=== PATIENT | female | born 2005 | race Caucasian/White ===

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

== ENCOUNTER 2023-08-16 08:21 | Outpatient (CLI) | payer OTHER | END 2023-08-16 08:22 | disposition home or self-care (01) | LOC: MRI 08:21 | PROVIDERS: ATTEND Orthopaedic Surgery | DX: M25.511 Pain in right shoulder (principal); S43.491A Other sprain of right shoulder joint, initial encounter ==

== ENCOUNTER 2023-08-21 00:08 | Emergency (ER) | payer OTHER ==
[2023-08-21] MEDS ORDERED: Morphine 4 MG/ML VIAL ONE (00:42)
[2023-08-21] MEDS ORDERED: Metoclopramide HCl 10 MG (2 mL) VIAL ONE (00:43)
[2023-08-21] MEDS ORDERED: diphenhydrAMINE 50 MG/ML VIAL ONE (00:43)
[2023-08-21 01:08] LABS: #Basophils 0.06 10x3/uL (0.0-0.2); %Basophils 0.7 % (0.0-1.0); %Eosinophils 1.5 % (0.0-10.0); %Lymphocytes 37.2 % (28.0-48.0); %Monocytes 8.5 % (0.0-4.0); Hematocrit 40.9 % (36.0-47.0); Mean Corpuscular HGB CONC 34.2 g/dL (32.0-36.0); Mean Corpuscular Hemoglobin 31.5 pg (25.0-35.0); Mean Corpuscular Volume 92.1 fL (78.0-98.0); Mean Platelet Volume 9.8 fL (7.4-10.4); Platelet Count 231 10x3/uL (130-400); RBC Distribution Width 12.3 % (11.5-14.5); Red Blood Cell (RBC) Count 4.44 mill/uL (4.00-5.20)
[2023-08-21 01:16] LABS: BHCG - Serum Negative (NEGATIVE); Pregs Control Background? CLEAR/WHITE (CLR/WHITE); Pregs Control Bar Appear? YES (CONTROL BAR)
[2023-08-21 01:26] LABS: ALT (SGPT) 13 U/L (8-55); AST (SGOT) 15 U/L (5-34); Albumin 3.8 g/dL (3.5-5.0); Alkaline Phosphatase 53 U/L (40-100); Anion Gap 13 mmol/L (10-20); BUN (Urea Nitrogen) 10 mg/dL (7.0-18.7); Bilirubin, Total 0.4 mg/dL (0.2-1.2); Calc. Creatinine Clearance 0 mL/min (70-130); Calcium 9.3 mg/dL (7.8-10.44); Carbon Dioxide 24 mmol/L (22-29); Chloride 106 mmol/L (98-107); Estimated GFR 107; Globulin 3.4 g/dL (2.4-3.5); Glucose 96 mg/dL (70-105); Magnesium 2.1 mg/dL (1.7-2.2); Potassium 3.7 mmol/L (3.5-5.1); Protein, Total 7.2 g/dL (6.0-8.3); Sodium 139 mmol/L (136-145)
[2023-08-21 01:36] LABS: Lipase 23 U/L (8-78)
[2023-08-21 01:42] LABS: Bacteria/HPF 4+ HPF (None Seen); Bilirubin Negative (Negative); Blood, Urine Negative (Negative); CAUTI Indications for Culture Pelvic or flank pain; Clarity Clear (Clear); Glucose, Urine (Dipstick) Normal (Negative); Ketone, Urine Negative (Negative); Leukocyte Negative Leu/uL (Negative); Nitrite Negative (Negative); Protein, Urine (Dipstick) Negative (Neg-Trace); RBC/HPF 0-3 HPF (0-3); Specific Gravity, Urine 1.006 (1.002-1.036); Squamous Epithelial 0-3 HPF (0-3); Urobilinogen Normal mg/dL (Less than 2); WBC/HPF 0-3 HPF (0-3)
[2023-08-21 01:44] LABS: Urine Culture Reflex No No
[2023-08-21] MEDS ORDERED: Iopamidol-370 76% 500 ML MDV (1 ML CHARGE) ONE (12:49)
== END 2023-08-21 02:33 | disposition home or self-care (01) ==
LOC: ERS 00:08
DX: K50.90 Crohn's disease, unspecified, without complications (principal)
CPT/HCPCS: 74177; 80053; 81001; 83690; 83735; 84703; 85025; 96365; 96366; 96375; J1200; J2270; J2765; Q9967

== ENCOUNTER 2025-02-06 15:02 | Inpatient (IN) | payer OTHER ==
[2025-02-06 17:56] VITALS: BMI 19.0
[2025-02-06] MEDS ORDERED: Melatonin 3 MG TAB PO PRN (18:22)
[2025-02-06] MEDS ORDERED: Acetaminophen 325 MG TAB PO PRN (18:22)
[2025-02-06] MEDS ORDERED: Electrolyte Replacement Protocol 1 EACH FS SCH (18:30)
[2025-02-06] MEDS ORDERED: Magnesium Sulfate In Water 4 GM in Premix 1 BAG IVPB PRN (18:45)
[2025-02-06] MEDS ORDERED: Potassium Chloride 20 MEQ in Premix 1 BAG IVPB PRN (18:45)
[2025-02-06] MEDS ORDERED: PHOS-NAK 1 PKT PACK PO PRN (18:45)
[2025-02-06] MEDS: Ondansetron PF 4 MG/2 ML Vial IVP PRN (20:08)
[2025-02-06] MEDS: diphenhydrAMINE 25 MG CAP PO PRN (21:32)
[2025-02-07 06:02] LABS: #Basophils Less than 0.03 10x3/uL (0.0-0.2); #Eosinophils Less than 0.03 10x3/uL (0.0-0.7); #Monocytes 0.71 10x3/uL (0.11-0.59); #Neutrophils 6.51 10x3/uL (1.40-6.50); %Basophils 0.2 % (0.0-1.0); %Eosinophils 0.1 % (0.0-10.0); %Lymphocytes 31.4 % (21.0-51.0); %Monocytes 6.7 % (0.0-10.0); %Neutrophils 61.2 % (42.0-75.0); Hematocrit 32.9 % (36.0-47.0); Hemoglobin 10.7 g/dL (12.0-16.0); Mean Corpuscular Hemoglobin 30.8 pg (27.0-31.0); Mean Corpuscular Volume 94.8 fL (78.0-98.0); Platelet Count 205 10x3/uL (130-400); Red Blood Cell (RBC) Count 3.47 mill/uL (4.20-5.40); White Blood Cell (WBC) Count 10.62 10x3/uL (4.8-10.8)
[2025-02-07 06:21] LABS: ALT (SGPT) 14 U/L (Less than 34); AST (SGOT) 15 U/L (11-34); Albumin 3.1 g/dL (3.1-4.5); Alkaline Phosphatase 35 U/L (40-110); Anion Gap 9 mmol/L (10-20); BUN (Urea Nitrogen) 6 mg/dL (7.0-18.7); Bilirubin, Total 0.3 mg/dL (0.3-1.2); Calc. Creatinine Clearance 109 mL/min (70-130); Calcium 8.5 mg/dL (7.8-10.44); Carbon Dioxide 24 mmol/L (22-29); Chloride 113 mmol/L (98-107); Globulin 2.1 g/dL (2.4-3.5); Glucose 95 mg/dL (70-105); Magnesium 1.9 mg/dL (1.6-2.6); Potassium 3.9 mmol/L (3.5-5.1); Sodium 142 mmol/L (136-145)
[2025-02-07] MEDS: cefTRIAXone\\ROCEPHIN 1 GM in Sodium Chloride 0.9% 100 ML IVPB SCH (08:41)
[2025-02-07] MEDS: Ketorolac Tromethamine 30 MG (1 mL) VIAL IVP SCH (11:45)
[2025-02-08 06:19] LABS: Anion Gap 4 mmol/L (10-20); BUN (Urea Nitrogen) Less than 4 mg/dL (7.0-18.7); Calc. Creatinine Clearance 150 mL/min (70-130); Calcium 8.5 mg/dL (7.8-10.44); Carbon Dioxide 23 mmol/L (22-29); Chloride 114 mmol/L (98-107); Glucose 128 mg/dL (70-105); Potassium 4.0 mmol/L (3.5-5.1); Sodium 137 mmol/L (136-145)
[2025-02-08 06:20] LABS: CRP, High Sensitivity at Bryan 0.04 mg/dL (< or = 0.5)
[2025-02-08] MEDS: Ondansetron PF 4 MG/2 ML Vial IVP PRN (13:27)
[2025-02-08] MEDS: ALPRAZolam 0.25 MG TAB PO PRN (13:42)
[2025-02-09 06:49] LABS: #Basophils Less than 0.03 10x3/uL (0.0-0.2); #Eosinophils Less than 0.03 10x3/uL (0.0-0.7); #Monocytes 0.79 10x3/uL (0.11-0.59); #Neutrophils 8.83 10x3/uL (1.40-6.50); %Basophils 0.1 % (0.0-1.0); %Eosinophils 0.0 % (0.0-10.0); %Lymphocytes 15.6 % (21.0-51.0); %Monocytes 6.9 % (0.0-10.0); %Neutrophils 77.0 % (42.0-75.0); Hematocrit 37.4 % (36.0-47.0); Hemoglobin 12.0 g/dL (12.0-16.0); Mean Corpuscular Hemoglobin 30.6 pg (27.0-31.0); Mean Corpuscular Volume 95.4 fL (78.0-98.0); Platelet Count 244 10x3/uL (130-400); Red Blood Cell (RBC) Count 3.92 mill/uL (4.20-5.40); White Blood Cell (WBC) Count 11.47 10x3/uL (4.8-10.8)
[2025-02-09 07:06] LABS: Anion Gap 11 mmol/L (10-20); BUN (Urea Nitrogen) 5 mg/dL (7.0-18.7); Calc. Creatinine Clearance 131 mL/min (70-130); Calcium 8.8 mg/dL (7.8-10.44); Carbon Dioxide 24 mmol/L (22-29); Chloride 110 mmol/L (98-107); Glucose 124 mg/dL (70-105); Potassium 4.0 mmol/L (3.5-5.1); Sodium 141 mmol/L (136-145)
[2025-02-09 07:07] LABS: CRP, High Sensitivity at Bryan 0.03 mg/dL (< or = 0.5)
[2025-02-09] MEDS: Pantoprazole 40 MG VIAL IVP SCH (10:47)
[2025-02-09] MEDS: Ketorolac Tromethamine 30 MG (1 mL) VIAL IVP PRN (17:10)
[2025-02-09] MEDS: GoLYTELY 4,000 ml Bottle PO SCH (18:07)
[2025-02-09] MEDS: diphenhydrAMINE 50 MG/ML VIAL IVP SCH (21:11)
[2025-02-09] MEDS: Famotidine/PF 20 mg/2ml Vial SLOW IVP SCH (21:12)
[2025-02-10 07:31] LABS: #Basophils Less than 0.03 10x3/uL (0.0-0.2); #Eosinophils Less than 0.03 10x3/uL (0.0-0.7); #Monocytes 0.65 10x3/uL (0.11-0.59); #Neutrophils 8.52 10x3/uL (1.40-6.50); %Basophils 0.1 % (0.0-1.0); %Eosinophils 0.0 % (0.0-10.0); %Lymphocytes 15.4 % (21.0-51.0); %Monocytes 6.0 % (0.0-10.0); %Neutrophils 78.0 % (42.0-75.0); Hematocrit 39.6 % (36.0-47.0); Hemoglobin 12.6 g/dL (12.0-16.0); Mean Corpuscular Hemoglobin 30.3 pg (27.0-31.0); Mean Corpuscular Volume 95.2 fL (78.0-98.0); Platelet Count 257 10x3/uL (130-400); Red Blood Cell (RBC) Count 4.16 mill/uL (4.20-5.40); White Blood Cell (WBC) Count 10.92 10x3/uL (4.8-10.8)
[2025-02-10] MEDS: Pantoprazole 40 MG VIAL IVP SCH (08:25)
[2025-02-10] MEDS ORDERED: PROPOFOL 40 ML ONE (12:26)
[2025-02-10] MEDS ORDERED: PROPOFOL 200 MG/20 ML VIAL ONE (13:36)
[2025-02-10] MEDS ORDERED: Dicyclomine 10 MG CAP PO PRN (14:15)
[2025-02-11 03:33] VITALS: TEMP 97.9
[2025-02-11 05:41] LABS: #Basophils Less than 0.03 10x3/uL (0.0-0.2); #Eosinophils Less than 0.03 10x3/uL (0.0-0.7); #Monocytes 0.95 10x3/uL (0.11-0.59); #Neutrophils 9.67 10x3/uL (1.40-6.50); %Basophils 0.2 % (0.0-1.0); %Eosinophils 0.0 % (0.0-10.0); %Lymphocytes 16.1 % (21.0-51.0); %Monocytes 7.4 % (0.0-10.0); %Neutrophils 75.8 % (42.0-75.0); Hematocrit 42.1 % (36.0-47.0); Hemoglobin 13.3 g/dL (12.0-16.0); Mean Corpuscular Hemoglobin 30.2 pg (27.0-31.0); Mean Corpuscular Volume 95.7 fL (78.0-98.0); Platelet Count 255 10x3/uL (130-400); Red Blood Cell (RBC) Count 4.40 mill/uL (4.20-5.40); White Blood Cell (WBC) Count 12.76 10x3/uL (4.8-10.8)
[2025-02-11 05:51] LABS: CRP, High Sensitivity at Bryan 0.02 mg/dL (< or = 0.5)
[2025-02-11 05:52] LABS: ALT (SGPT) 35 U/L (Less than 34); AST (SGOT) 22 U/L (11-34); Albumin 3.6 g/dL (3.1-4.5); Alkaline Phosphatase 40 U/L (40-110); Anion Gap 7 mmol/L (10-20); BUN (Urea Nitrogen) 11 mg/dL (7.0-18.7); Bilirubin, Total 0.3 mg/dL (0.3-1.2); Calc. Creatinine Clearance 102 mL/min (70-130); Calcium 8.8 mg/dL (7.8-10.44); Carbon Dioxide 25 mmol/L (22-29); Chloride 110 mmol/L (98-107); Globulin 2.8 g/dL (2.4-3.5); Glucose 122 mg/dL (70-105); Lipase 11 U/L (8-78); Potassium 4.6 mmol/L (3.5-5.1); Sodium 137 mmol/L (136-145)
[2025-02-11 12:18] VITALS: BP 116/85
== END 2025-02-11 12:26 | disposition home or self-care (01) | DRG 387 ==
LOC: SURG B 15:47
PROVIDERS: ADMIT Internal Medicine; ATTEND Internal Medicine
PROC: 0DBH8ZX Excision of Cecum, Via Natural or Artificial Opening Endoscopic, Diagnostic (ICD-10-PCS; principal; 2025-02-10)
PROC: 0DBN8ZX Excision of Sigmoid Colon, Via Natural or Artificial Opening Endoscopic, Diagnostic (ICD-10-PCS; 2025-02-10)
PROC: 0DBM8ZX Excision of Descending Colon, Via Natural or Artificial Opening Endoscopic, Diagnostic (ICD-10-PCS; 2025-02-10)
DX: K50.80 Crohn's disease of both small and large intestine without complications (principal); F41.9 Anxiety disorder, unspecified; G43.909 Migraine, unspecified, not intractable, without status migrainosus; K63.5 Polyp of colon; Z79.899 Other long term (current) drug therapy
CPT/HCPCS: 36415; 36416; 80048; 80053; 83690; 83735; 85025; 86141; 88305; J0696; J1200; J1308; J1885; J2250; J2270; J2405; J2470; J2550; J2704; J2919; J7120